=== PATIENT | female | born 1955 | race Caucasian/White ===

== ENCOUNTER → 2016-11-29 | Outpatient (CLI) | payer OTHER ==
--- NOTE | 2016-11-29 17:36 | DX ---
Bilateral Hips - Three Views Indication: Right hip pain for five months. Technique: AP pelvis and bilateral frog-leg lateral views. Comparison: Lumbar spine series dated December 12, 2015. Findings: The bones are normally mineralized. Mild to moderate right hip osteoarthritis is evidence d by joint space narrowing, subchondral sclerosis in the acetabular roof and superior femoral head. A bump is present along the junction of the femoral head neck junction bilaterally suggestive of femo ral acetabular impingement. Mild to moderate bilateral sacroiliac osteoarthritis, worse left than ri ght, is unchanged since December 2015. Moderate arthropathy involves the pubic symphysis evidenced b y vacuum disk phenomena and sclerosis in bilateral pubic bones. No fracture or bone lesion. Impression: 1. 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 2. Sacroiliac osteoarthritis, unchanged since December 2015. 3. Osteitis pubis.
== END ==
LOC: BMCIMAGING 15:45
PROVIDERS: ATTEND Internal Medicine
DX: M16.11 Unilateral primary osteoarthritis, right hip (principal); M85.38 Osteitis condensans, other site

== ENCOUNTER 2016-12-28 12:38 | Emergency (ER) | payer OTHER ==
--- NOTE | 2016-12-28 14:07 | EDPHY ---
H & P Time Seen by Provider: 12/28/16 13:37 HPI/ROS: CHIEF COMPLAINT: left leg pain HISTORY OF PRESENT ILLNESS: 61-year-old female presents emergency department complaining of left calf pain. Patient was skiing today when she fell and hyper dorsiflexed her left foot, she felt a tear and pain in her left calf. Pain with movement. She denies head strike, no neck pain, no loss of consciousness, no other complaints. No numbness or tingling in this leg. Patient had a previous total knee replacement, she denies knee pain. Smoking Status: Never smoked Physical Exam: GEN: Awake, alert, oriented, no acute distress RESP: nl resp effort MSK: Left knee with full range of motion, left posterior calf with tenderness to palpation, mild swelling, no ecchymosis, 2+ pedal pulses, sensation intact to light touch, Achilles tendon intact, normal Salomon's test SKIN: No break in skin Constitutional: Initial Vital Signs Temperature (C) 36.7 C 12/28/16 12:38 Heart Rate 84 12/28/16 12:38 Respiratory Rate 18 12/28/16 12:38 Blood Pressure 156/104 H 12/28/16 12:38 O2 Sat (%) 99 12/28/16 12:38 O2 Delivery Mode Room Air Allergies/Adverse Reactions: nebivolol HCl [From Bystolic] Allergy (Mild, Verified 12/28/16 12:48) Rash Home Medications: Medication Instructions Recorded Atorvastatin Calcium [Lipitor 40 40 mg PO 12/28/16 mg (*)] Hydrocodone/APAP 5/325 [[place] 1 tab PO Q4H PRN #7 tab 12/28/16 5/325] MDM/Departure - Depart Disposition: Home, Routine, Self-Care Clinical Impression: Gastrocnemius strain, left Qualifiers: Encounter type: initial encounter Qualified Code(s): S86.112A - Strain of other muscle(s) and tendon(s) of posterior muscle group at lower leg level, left leg, initial encounter Condition: Good Instructions: Muscle Strain (ED) Additional Instructions: Rest, ice, elevate, Peter wrap for compression, take 600mg of ibuprofen every 8 hours with food for 3-5 days as needed for pain and swelling. Wear [place] boot. Use crutches as needed for ambulation. Follow up with orthopedist at 1st available appointment. Take 1 [place] every 6 hours as needed for severe pain. Return to the emergency department for any numbness, tingling, discoloration of you limb or other concerns. Prescriptions: Hydrocodone/APAP 5/325 [[place] 5/325] 1 tab PO Q4H PRN #7 tab PRN Reason: Pain, Moderate Referrals: Colton Newsome MD [Medical Doctor] - As per Instructions (Orthopedist on-call)
[2016-12-28 14:48] VITALS: BP 148/99; PULSE 87; RESP 61; TEMP 97.7; O2SAT 96
== END 2016-12-28 14:48 | disposition home or self-care (01) ==
DX: S86.112A Strain of other muscle(s) and tendon(s) of posterior muscle group at lower leg level, left leg, initial encounter (principal); W18.39XA Other fall on same level, initial encounter; Y99.8 Other external cause status; Y93.23 Activity, snow (alpine) (downhill) skiing, snowboarding, sledding, tobogganing and snow tubing
CPT/HCPCS: L4386